=== PATIENT | male | born 1945 | race Caucasian/White ===

== ENCOUNTER 2021-02-09 16:05 | Emergency (ER) | payer MEDICARE ==
[~2021-02-09] VITALS: Ht 175.3 cm; Wt 81.8 kg
[~2021-02-09 16:05] MED LIST: ASPI81TA52 PO
[2021-02-09 16:53] VITALS: BP 170/107
[2021-02-09] MEDS ORDERED: apixaban 5mg tablet PO ONE (20:55)
[2021-02-09] MEDS ORDERED: APIX5TAB3 PO (20:59)
== END 2021-02-09 21:33 | disposition home or self-care (01) ==
LOC: ER 16:05
DX: I82.402 Acute embolism and thrombosis of unspecified deep veins of left lower extremity (principal); N40.0 Benign prostatic hyperplasia without lower urinary tract symptoms; Z79.82 Long term (current) use of aspirin; Z79.899 Other long term (current) drug therapy; Z87.891 Personal history of nicotine dependence; Z72.89 Other problems related to lifestyle
CPT/HCPCS: 93970; 99284